=== PATIENT | female | born 1980 | race Caucasian/White ===

== ENCOUNTER 2022-05-26 20:35 | Emergency (ER) | payer OTHER, SELFPAY ==
[2022-05-26 20:35] VITALS: BP 161/86; PULSE 60; RESP 16; TEMP 37; O2SAT 100
--- NOTE | 2022-05-26 20:53 | DI.RAD.S_ITS ---
PROCEDURE: XR FOOT RT MIN 3V INDICATIONS: felt a pop while running TECHNIQUE: 3 views of the foot were acquired. COMPARISON: None. FINDINGS: Bones: No fractures or dislocations. No suspicious bony lesions. Soft tissues: No tibiotalar joint effusion. Achilles tendon appears normal. IMPRESSION: 1. No fracture or dislocation. Dictated by: Virgil Oseguera M.D. on 05/26/2022 at 21:32 Approved by: Virgil Oseguera M.D. on 05/26/2022 at 21:39
[2022-05-26] MEDS: ACETAMINOPHEN 325 MG TABLET 650 MG PO (21:47)
--- NOTE | 2022-05-26 22:04 | ED_ITS ---
HPI - Extremity Injury (Lower) General Chief Complaint: Extremity Injury, Lower Stated Complaint: RT. FOOT PAIN Time Seen by Provider: 05/26/22 22:01 Source: patient and family Mode of arrival: Wheelchair Limitations: no limitations History of Present Illness HPI Narrative: This is a 41-year-old female who comes emergency department with complaint of right foot pain. Patient states she was running she felt a cramp in her foot. And then she started slow down when she started to run again as it was a timed run for the [employer] patient states she felt a pop on the underside of her foot in the arch more towards the heel. She states she is been painful to weight bear particularly on the heel. Patient states she has had plantar fasciitis in the past she is done stretching for this this has been going on for about 6 weeks. She denies any other injuries. No numbness or tingling. Has not had any other bruising or skin changes. Related Data Allergies Allergy/AdvReac Type Severity Reaction Status Date / Time Sulfa (Sulfonamide Allergy Unknown RASH Unverified 01/20/18 12:37 Antibiotics) [SULFA (SULFONAMIDE ANTIBIOTICS)] cephalexin [From KEFLEX] AdvReac Unknown VOMITING Unverified 01/20/18 12:37 Review of Systems Review of Systems ROS Unobtainable: All systems reviewed & are unremarkable except as noted in HPI and below Patient History Social History Smoking Status: Never smoker Smoking Status: Never smoker Substance Use Type: does not use Exam Narrative Exam Narrative: GENERAL: Alert and oriented x three, female in mild distress HEENT: Head normocephalic, atraumatic, EOMI, pupils reactive, face symmetric, moist mucous membranes NECK: Supple, full range of motion EXTREMITIES: Normal range of motion, no clubbing or edema. Neurovascularly in tact. No bony tenderness of the right lower extremity, ankle or foot. Patient does not have discrete calcaneal tenderness but does in the soft tissue more medially and towards the mid foot at the arch. There is no fullness or swelling appreciated, no ecchymosis, no erythema or other skin changes no lacerations. NEUROLOGICAL: Cranial nerves II through XII grossly intact. Moving all extremities SKIN: Warm, dry, no petechiae, no rashes or lesions. Initial Vital Signs Initial Vital Signs: Vital Signs Temperature 98.6 F 05/26/22 20:35 Pulse Rate 60 05/26/22 20:35 Respiratory Rate 16 05/26/22 20:35 Blood Pressure 161/86 H 05/26/22 20:35 Pulse Oximetry 100 05/26/22 20:35 Oxygen Delivery Method 05/26/22 20:35 Course Orders Ordered: ED Orders 05/26/22 20:53 XR foot RT min 3V Stat Discontinued Medications Acetaminophen (Acetaminophen 325 Mg Tablet) 650 mg PO NOW ONE Stop: 05/26/22 21:45 Last Admin: 05/26/22 21:47 Dose: 650 mg Documented By: Vital Signs Vital signs: Vital Signs - 8 hr 05/26/22 20:35 Temperature 98.6 F Pulse Rate 60 Respiratory Rate 16 Blood Pressure 161/86 H Pulse Oximetry 100 Oxygen Delivery Method Room Air MDM - Extremity Injury (Lower) Imaging Data Extremity x-ray #1: Radiologist's Impression: [address] [id number] ReportSigned Patient: Jaye Reynoos#: [id number]: 1980Acct:[id number]/Sex: 41 / FDate of Service: 05/26/22Loc: EDAccession Number: [id number]? ? Procedure: XR foot RT min 3V Ordering Provider: Eboni Hernández D.O. PROCEDURE:? XR FOOT RT MIN 3V ? INDICATIONS:? felt a pop while running ? TECHNIQUE:? 3 views of the foot were acquired.? ? COMPARISON:? None. ? FINDINGS:? ? Bones:? No fractures or dislocations.? No suspicious bony lesions.? ? Soft tissues:? No tibiotalar joint effusion.? Achilles tendon appears normal.? ? ? IMPRESSION:? ? 1. No fracture or dislocation. ? ? Dictated by: Virgil Oseguera M.D. on 05/26/2022 at 21:32? ?? Approved by: Virgil Oseguera M.D. on 05/26/2022 at 21:39?? [facility] Narrative Medical decision making narrative: This is a 41-year-old female with right foot pain with a sensation of a pop and pain at the soft tissue on the arch just adjacent to the calcaneus while running today. Plan for ortho shoe, weight-bearing as tolerated with crutches and follow-up in the next week if symptoms are persisting. Patient can use Tylenol and NSAIDs as needed for pain. Discharge Plan Departure Patient Disposition: Home Clinical Impression: Foot sprain Instructions: DI for Foot Sprain Activity Restrictions/Additional Instructions: Follow-up with primary care or orthopedic surgery in the next 7-10 days if your symptoms are persisting. I suspect you may have injured a tendon, ligament or the fascia on the underside of your foot. Wear ortho shoe if you are having persistent pain. You may weightbear as tolerated with crutches. You may take ibuprofen up to 800 mg every 8 hours and/or Tylenol up to a 1000 mg every 6 hours as needed for pain Elevated affected body part to decrease swelling. OK to use ice pack on the affected body part. Use for 15-20 minutes each time, for 5-6x per day. If you develop worsening pain, numbness, tingling, discoloration of the affected body part, either see your doctor for an urgent re-assessment, or return to the Emergency Department. Return to the Emergency Department for any new or worsening symptoms. Stand Alone Forms: Work Release Note Visit Report Forms: Patient Portal/API
== END 2022-05-26 22:36 | disposition home or self-care (01) ==
PROVIDERS: Emergency Provider Emergency Medicine
DX: S93.601A Unspecified sprain of right foot, initial encounter (principal)
CPT/HCPCS: 73630; 99283